=== PATIENT | male | born 1980 | race Hispanic/Latino ===

== ENCOUNTER → 2024-12-15 | Outpatient (CLI) | payer BC ==
--- NOTE | 2024-12-15 11:02 | HMCIMG ---
MR SPINAL CANAL, LUMBAR WO CON HISTORY: Radiculopathy COMPARISON: None TECHNIQUE: MRI of the lumbar spine was performed utilizing multiple pulse sequences in axial , coronal and sagittal plane. Patient was not given contrast through intravenous route. FINDINGS: No abnormal signal intensity is seen of the visualized bony structure. No loss of vertebral height is seen. There is straightening of normal lumbar curvature which may be related to muscle spasm or positioning. Degenerative disc signals are present at L3-4, L4-5 and L5-S1 levels. Visualized distal conus is unremarkable. At the L3-4 level, there is spondylotic disc with annular disc bulge, large 7.6 mm x 13.6 mm in cross dimension disc herniation/extrusion and bilateral ligamentum flavum hypertrophy causing anterior thecal sac compression with bilateral lateral recess stenosis and bilateral neural foraminal stenosis. The thecal sac measures approximately 7.8 mm in its anterior posterior dimension. At the L4-5 level, there is spondylotic disc with 14 mm in longitudinal dimension disc herniation/extrusion causing anterior thecal sac compression with bilateral lateral recess stenosis and bilateral neural foraminal stenosis. The thecal sac measures approximately 6.4 mm in its anterior posterior dimension. At the L5-S1 level, there is spondylotic disc with large 17 x 4.5 mm in cross-sectional dimension disc herniation/extrusion causing anterior thecal sac compression with bilateral lateral recess stenosis and bilateral neural foraminal stenosis. The thecal sac measures approximately 3.5 mm in its anterior posterior dimension. IMPRESSION: 1. There are disc herniation/extrusion with central canal narrowing at L3-4, L4-5 and L5-S1 levels.
== END | disposition home or self-care (01) ==
LOC: RAH 08:58
PROVIDERS: ATTEND Family Medicine
DX: M47.26 Other spondylosis with radiculopathy, lumbar region (principal); M47.818 Spondylosis without myelopathy or radiculopathy, sacral and sacrococcygeal region; M51.16 Intervertebral disc disorders with radiculopathy, lumbar region; M48.07 Spinal stenosis, lumbosacral region; M53.87 Other specified dorsopathies, lumbosacral region
CPT/HCPCS: 72148